=== PATIENT | female | born 1990 ===

== ENCOUNTER 2021-03-21 09:20 | Outpatient (CLI) | payer OTHER | END 2021-03-21 09:25 | disposition home or self-care (01) | LOC: SONOGRAMA 09:20 → MAMO-SONO 09:35 | PROVIDERS: ATTEND Obstetrics & Gynecology | DX: N84.0 Polyp of corpus uteri (principal) ==

== ENCOUNTER 2022-01-06 07:55 | Outpatient (CLI) | payer OTHER | END 2022-01-06 08:08 | disposition home or self-care (01) | LOC: RX STUDY 07:55 | DX: D25.9 Leiomyoma of uterus, unspecified (principal); N94.6 Dysmenorrhea, unspecified ==

== ENCOUNTER 2023-03-12 09:10 | Outpatient (CLI) | payer OTHER | END 2023-03-12 09:22 | disposition home or self-care (01) | LOC: RX STUDY 09:10 | PROVIDERS: ATTEND Obstetrics & Gynecology Reproductive Endocrinology | DX: N93.0 Postcoital and contact bleeding (principal) ==